=== PATIENT | female | born 1950 | race Caucasian/White ===

== ENCOUNTER 2017-03-19 11:39 | Observation (INO) | payer BC, MEDICARE ==
[~2017-03-19] VITALS: Ht 157.5 cm; Wt 64.0 kg
[2017-03-19] MEDS ORDERED: KETOROLAC 15 MG INJ IV STA (11:49)
[2017-03-19] MEDS ORDERED: SOD CHLORIDE 0.9% 1,000 ML IV STA (11:49)
[2017-03-19] MEDS ORDERED: ASPIRIN 81 MG TAB PO ONE (12:00)
[2017-03-19 12:15] LABS: ADD SCAN DIFF NO
[2017-03-19 12:19] LABS: BASOPHILS % 0.2 % (0.0-2.0); EOSINOPHILS % 0.1 % (0.0-7.0); HEMATOCRIT 41.3 % (37.0-47.0); HEMOGLOBIN 13.9 g/dl (12.0-16.0); LYMPHOCYTES # 1.6 10^3/ul (0.8-2.9); LYMPHOCYTES % 16.1 % (15.0-51.0); MEAN CORPUSCULAR HEMOGLOBIN 28.7 pg (29.0-33.0); MEAN CORPUSCULAR HGB CONC 33.7 g/dl (32.0-37.0); MEAN CORPUSCULAR VOLUME 85.2 fl (82.0-101.0); MEAN PLATELET VOLUME 10.1 fl (7.4-10.4); MONOCYTE # 0.8 10^3/ul (0.3-0.9); MONOCYTES % 8.1 % (0.0-11.0); NEUTROPHIL # 7.7 10^3/ul (1.6-7.5); NEUTROPHILS % 75.1 % (39.0-77.0); PLATELET COUNT 246 10^3/UL (140-415); RED BLOOD COUNT 4.85 10^6/ul (4.20-5.40); RED CELL DISTRIBUTION WIDTH 12.3 % (11.5-14.5); WHITE BLOOD COUNT 10.2 10^3/ul (4.8-10.8)
[2017-03-19 12:39] LABS: ALANINE AMINOTRANSFERASE 35 IU/L (13-69); ALBUMIN 4.2 g/dl (3.3-4.9); ALKALINE PHOSPHATASE 87 IU/L (42-121); ANION GAP 19 (8-16); ASPARTATE AMINO TRANSFERASE 33 IU/L (15-46); BILIRUBIN,INDIRECT 0.7 mg/dl (0-1.1); BILIRUBIN,TOTAL 0.7 mg/dl (0.2-1.3); BLOOD UREA NITROGEN 14 mg/dl (7-20); CALCIUM 9.6 mg/dl (8.4-10.2); CARBON DIOXIDE 28 mmol/L (21-31); CHLORIDE 100 mmol/L (97-110); CREATININE 0.64 mg/dl (0.44-1.00); GLUCOSE 155 mg/dl (70-220); POTASSIUM 4.2 mmol/L (3.5-5.1); SODIUM 143 mmol/L (135-144); TOTAL PROTEIN 7.2 g/dl (6.1-8.1)
[2017-03-19 12:56] LABS: TROPONIN-I < 0.012 ng/ml (0.00-0.12)
--- NOTE | 2017-03-19 13:09 | ERA ---
ER Documentation Chief Complaint Date/Time DATE: 03/19/17 TIME: 13:01 Chief Complaint sent by pmd for abn ekg HPI 67-year-old woman referred by PMD for abnormal EKG. Patient states since last night she has had inspiratory substernal chest pain. She denies previous episodes. She denies resting pain, no shortness of breath, no calf or leg swelling, no cough, no fevers or chills, no vomiting or diarrhea. Patient does have a history of atrial fibrillation and supraventricular tachycardia status post ablation, and has a history of ovarian cancer status post radiation therapy 3 years ago. No history of thrombosis. Patient used low-dose aspirin last night. Patient states her pulse normally runs in the 80s although at her PMDs office she was tachycardic at 100. ROS All systems reviewed and are negative except as per history of present illness. Allergies Allergies: Coded Allergies: Penicillins (Unverified Allergy, Unknown, 09/03/06) PMhx/Soc History of Surgery: Yes (heart surgery for asd, cardiac ablation , hysterectomy ) Hx Cardiac Disorders: Yes (atrial septal defect, htn, cholesterol) Hx Miscellaneous Medical Probl: Yes (dm 2, hypothyroid , uterine ca ) Hx Alcohol Use: No Hx Substance Use: No Hx Tobacco Use: No Smoking Status: Never smoker FmHx Family History: No diabetes Physical Exam Vitals Vital Signs Date Time Temp Pulse Resp B/P Pulse Ox O2 Delivery O2 Flow Rate FiO2 03/19/17 12:23 90 25 118/67 99 Room Air 03/19/17 11:41 99.3 101 20 118/69 98 Physical Exam GENERAL: Well-developed, well-nourished, well-hydrated, in no apparent distress , looks nontoxic in appearance HEENT: Moist mucous membranes, pink conjunctiva, no cervical spine tenderness or step-off deformities, no goiter, no jaundice or icterus, extraocular movements intact without pain. No submandibular induration, and no pharyngeal erythema NEURO: Alert and oriented 3, cranial nerves II through XII intact bilaterally, pupils equal round reactive to light, no focal deficits or facial asymmetry, sensation intact distally Strength 5/5 in upper and lower extremities bilaterally CARDIAC: Regular rate and rhythm, no murmurs rubs or gallops LUNGS: Clear bilaterally no wheezing crackles or stridor ABDOMEN: Soft nontender, no guarding, no rigidity, no rebound, no psoas sign no obturator sign. Normoactive bowel sounds SKIN: Warm and dry to touch, no abrasions, contusions, or hematomas, no lacerations, no ecchymosis, no target lesions, and without ulcers EXTREMITIES: No clubbing cyanosis or edema, calves are bilaterally symmetrical, no Homans sign, no popliteal cord sign. Distal pulses equal and bilateral PSYCH: Normal affect without agitation or irritability Result Diagram: 03/19/17 1210 03/19/17 1210 Results 24 hrs Laboratory Tests Test 03/19/17 12:10 White Blood Count 10.210^3/ul Red Blood Count 4.8510^6/ul Hemoglobin 13.9g/dl Hematocrit 41.3% Mean Corpuscular Volume 85.2fl Mean Corpuscular Hemoglobin 28.7pg Mean Corpuscular Hemoglobin Concent 33.7g/dl Red Cell Distribution Width 12.3% Platelet Count 11670^3/UL Mean Platelet Volume 10.1fl Neutrophils % 75.1% Lymphocytes % 16.1% Monocytes % 8.1% Eosinophils % 0.1% Basophils % 0.2% Neutrophils # 7.710^3/ul Lymphocytes # 1.610^3/ul Monocytes # 0.810^3/ul Eosinophils # 0.010^3/ul Basophils # 0.010^3/ul Nucleated Red Blood Cells # 0.010^3/ul Sodium Level 143mmol/L Potassium Level 4.2mmol/L Chloride Level 100mmol/L Carbon Dioxide Level 28mmol/L Anion Gap 19 Blood Urea Nitrogen 14mg/dl Creatinine 0.64mg/dl Glucose Level 155mg/dl Calcium Level 9.6mg/dl Total Bilirubin 0.7mg/dl Direct Bilirubin 0.00mg/dl Indirect Bilirubin 0.7mg/dl Aspartate Amino Transf (AST/SGOT) 33IU/L Alanine Aminotransferase (ALT/SGPT) 35IU/L Alkaline Phosphatase 87IU/L Troponin I < 0.012ng/ml Total Protein 7.2g/dl Albumin 4.2g/dl Globulin 3.00g/dl Albumin/Globulin Ratio 1.40 Lipase 41U/L Current Medications Medications (Trade) Dose Ordered Sig/Luiza Route PRN Reason Start Time Stop Time Status Last Admin Dose Admin Sodium Chloride (NS) 1,000 ml @ 1,000 mls/hr Q1H STAT IV 03/19/17 11:49 03/19/17 12:48 DC 03/19/17 12:21 Ketorolac Tromethamine (Toradol) 15 mg ONCE STAT IV 03/19/17 11:49 03/19/17 11:51 DC Aspirin (Aspirin) 324 mg ONCE ONCE PO 03/19/17 12:00 03/19/17 12:01 DC 03/19/17 12:21 IV Flush 10 ml 10 ml STK-MED ONCE .ROUTE 03/19/17 13:41 03/19/17 13:42 DC Sodium Chloride 100 ml @ ud STK-MED ONCE .ROUTE 03/19/17 13:41 03/19/17 13:42 DC Iohexol (Omnipaque) 100 ml @ ud STK-MED ONCE .ROUTE 03/19/17 13:41 03/19/17 13:42 DC Procedures/MDM IV line was established patient was placed on electronic lab technician rhythm strip revealed a sinus rhythm at about 90 bpm with upright P and T waves. Patient was afebrile. I administered 1 L normal saline intravenously, aspirin 324 mg p.o. for cardioprotective measures, and Toradol 15 mg IV 1. EKG performed, read by me: 91 bpm, normal sinus rhythm, normal axis, no acute ST segment changes, narrow QRS complex, with good R-wave progression in precordial leads. CBC and electrolytes were normal, liver function tests normal, troponin was negative. One view chest x-ray performed, read by me there is atelectatic changes bilaterally, possible early infiltrates, no pneumothorax, no end of the diaphragm, no pleural effusion. Given the patient's recent symptoms and x-ray findings I ordered blood culture 1, levofloxacin 750 mg IV 1, and BNP. Further antibiotic management if indicated deferred to PMD. CT angiogram of the chest ordered results are pending I will follow-up Patient will be admitted to telemetry setting for continued medical management cardiology consultation. Departure Diagnosis: Primary Impression: Chest pain Qualified Code: R07.1 - Chest pain on breathing Condition: MARY BETH Mota MD Mar 19, 2017 13:09
--- NOTE | 2017-03-19 13:25 | RADRPT ---
PROCEDURE: Chest Radiograph. CLINICAL INDICATION: Chest pain. TECHNIQUE: Single frontal chest radiograph. COMPARISON: None available FINDINGS: The cardiomediastinal silhouette is within normal limits. There is mild bibasilar opacities likely related to atelectasis. No definite confluent or lobar infiltrate is seen. There is no pleural effu rocco. The bones are intact. IMPRESSION: 1. Bibasilar opacities likely related atelectasis, though early infiltrates can have this appearanc e. Recommend follow-up as clinically indicated. RPTAT: KK .Don Ritchie MD, MD Date Time Electronically viewed and signed by .Don Ritchie MD, MD on 03/19/2017 13:25 .B/
[2017-03-19] MEDS ORDERED: SOD CHLORIDE 0.9% 100 ML ONE (13:41)
[2017-03-19] MEDS ORDERED: IOHEXOL 100 ML ONE (13:41)
--- NOTE | 2017-03-19 14:11 | RADRPT ---
PROCEDURE: CT angiogram of the chest with contrast. CLINICAL INDICATION: Rule out pulmonary embolism TECHNIQUE: CT scan of the chest with contrast was performed on a multidetector high-resolution CT scan. The patient was scanned following the uncomplicated intravenous administration of 90 ml Omnip aque 350. Coronal and sagittal reformatted images were obtained from the axial source images. Standa rd CT angiogram of the chest with contrast protocols were performed. 2-D and 3-D reformats were perf ormed. The total exam CTDI equals new 42.25 mGy and the total exam DLP equals 576.91 mGy-cm. One or more of the following dose reduction techniques were used: - Automated exposure control. - Adjustment of the mA and/or kV according to patient size. Use of iterative reconstruction technique. COMPARISON: Chest series same day FINDINGS: The pulmonary outflow tract, right and left main pulmonary arteries, right and left interlobar and p rimary intersegmental pulmonary arteries are well enhanced without evidence of filling defects. Spe cifically no evidence of central pulmonary emboli. No evidence of pulmonary arterial hypertension. The heart is mildly enlarged but no evidence of right heart strain. There is minimal atherosclerotic vascular disease of the proximal abdominal aorta. There is no evid ence of aortic dissection or aneurysm. The right left subclavian arteries, brachial cephalic artery , proximal aspects of the right and left common carotid and vertebral arteries are unremarkable. The celiac axis and SMA are unremarkable. There are 2 left renal arteries present and those portions v isualized are unremarkable. Proximal aspect of a solitary right renal artery is demonstrated and is unremarkable. No evidence of pleural effusions and pneumothoraces. No evidence of mediastinal hilar or axillary l ymphadenopathy. There is no evidence of acute lung infiltrates or pulmonary nodules bilaterally. T here is mild scarring involving the right middle lobe , both lung bases and both apices. There is a small hiatal hernia. The chest wall is unremarkable. There is a mild S-shaped thoracic scoliosis. There are degenerative changes lower cervical thoracic and upper lumbar spine but no acu te osseous findings are osteoblastic/osteolytic lesions. IMPRESSION: 1. No evidence of central pulmonary emboli. Negative for pulmonary arterial hypertension. 2. No evidence of aortic aneurysm or dissection. 3. Chronic bilateral parenchymal lung disease without evidence of acute infiltrates, pulmonary nodu les, 4. Small hiatal hernia. RPTAT:AAJJ Shashi Claire Physician Date Time Electronically viewed and signed by Shashi Claire Physician on 03/19/2017 14:11 /
[2017-03-19] MEDS ORDERED: LEVOFLOXACIN 750MG/D5W (PMX) 150 ML IVPB ONE (14:30)
[2017-03-19] MEDS ORDERED: LEVO175T2 PO (15:10)
[2017-03-19] MEDS ORDERED: LISI-313 PO (15:10)
[2017-03-19] MEDS ORDERED: SIMV10TA PO (15:10)
[2017-03-19] MEDS ORDERED: SITA100T8 PO (15:11)
[2017-03-19] MEDS ORDERED: METF1000 PO (15:11)
[2017-03-19] MEDS ORDERED: morphine 2 MG INJ IV PRN ×2 (18:00)
[2017-03-19] MEDS ORDERED: ONDANSETRON 4 MG TAB PO PRN (18:00)
[2017-03-19] MEDS ORDERED: LORAZEPAM 2 MG INJ IV PRN (18:00)
[2017-03-19] MEDS ORDERED: NITROGLYCERIN (SL) 0.4 MG TAB SL PRN (18:00)
[2017-03-19] MEDS ORDERED: MAGNESIUM HYDROXIDE 30ML CUP PO PRN (18:00)
[2017-03-19] MEDS ORDERED: ZOLPIDEM 5 MG TAB PO PRN (18:00)
[2017-03-19] MEDS ORDERED: ACETAMINOPHEN 325 MG TAB PO PRN (18:00)
[2017-03-19] MEDS ORDERED: NACL 0.9% 3 ML SYG IV SCH (18:00)
--- NOTE | 2017-03-19 18:06 | CONS ---
Date/Time of Note Date/Time of Note DATE: 03/19/17 TIME: 17:49 Assessment/Plan Assessment/Plan Chief Complaint/Hosp Course 67 yowf w/ hx of surgical ASD repair (1966), atrial flutter ablation, htn, DM and other issues who was sent by her PMD b/c chest pain and abnormal ECG. Her ECG abnormalities were actually present on a [place] ECG [place] [facility] [place]. She had a negative stress test in 02/26/19 (exercise nuclear stress test). Troponin is negative x 1 (despite hours of symptoms). Pt is now pain free. Pt's symptoms seem unlikely to be ACS for several reasons. May be musculoskeletal or pulmonary (infection). Due to risk factors, would observe o/n (serial troponins). Check echo tomorrow. If troponins negative, check lexiscan. Aspirin 81mg daily. Tx of possible pulmonary infection per medicine team. Problems: Consultation Date/Type/Reason Admit Date/Time Date of Consultation: Mar 19, 2017 Type of Consultation: cardiology Reason for Consultation chest pain, abnormal ECG Hx of Present Illness 67 yowf w/ hx of surgical ASD repair (1966), atrial flutter ablation, htn, DM and other issues who was sent by her PMD b/c chest pain and abnormal ECG. Pt states she had pleuritic chest pain last night (03/09). It felt like an ached. Was not associated with sob, nausea or diaphoresis. It occurred after she took her meds. She saw her PMD, and she was noted to be slightly tachy then (sinus tach, low 100s). Her ECG at the PMD's office had mild ST elevations in the inferior leads (J-point, < 1mm), but these findings were present in an ECG done by Dr. Oliva in 12/15. Pt stated her pain improved upon arrival and now she is chest pain free. Her troponin is negative x 1. CXR reveals ? atelectasis vs early PNA. CTA is negative for PE. She received aspirin, abx, and toradol ( unclear if pt took the last). Pt is followed by Dr. Oliva. She had a negative exercise stress test 02/26, and an echo done 05/27/16 revealed normal LV fxn with no evidence of residual ASD. Past Medical History ASD - surgical repair 1967 atrial flutter ablation htn DM hysterectomy uterine CA Past Surgical History see above Social History Smoking Status: Former smoker Exam/Review of Systems Vital Signs Vitals Vital Signs Date Time Temp Pulse Resp B/P Pulse Ox O2 Delivery O2 Flow Rate FiO2 03/19/17 16:15 83 28 111/63 100 Room Air 03/19/17 11:41 99.3 Exam Constitutional: alert, oriented, No distress Eyes: EOMI Neck: other (no carotid bruits), supple, No jvd Respiratory: clear to auscultation Cardiovascular: regular rate and rhythm, No systolic murmur Extremities: other (trace edema) Neurological: nl mental status Results nsr @ 91, nl axis, nl intervals, Q in III, J-point elevation in I, II, avF (< 1mm) - present on ECG 11/2016 Result Diagram: 03/19/17 1210 03/19/17 1210 Results 24 hrs Laboratory Tests Test 03/19/17 12:10 White Blood Count 10.2 Red Blood Count 4.85 Hemoglobin 13.9 Hematocrit 41.3 Mean Corpuscular Volume 85.2 Mean Corpuscular Hemoglobin 28.7 L Mean Corpuscular Hemoglobin Concent 33.7 Red Cell Distribution Width 12.3 Platelet Count 246 Mean Platelet Volume 10.1 Neutrophils % 75.1 Lymphocytes % 16.1 Monocytes % 8.1 Eosinophils % 0.1 Basophils % 0.2 Neutrophils # 7.7 H Lymphocytes # 1.6 Monocytes # 0.8 Eosinophils # 0.0 Basophils # 0.0 Nucleated Red Blood Cells # 0.0 Sodium Level 143 Potassium Level 4.2 Chloride Level 100 Carbon Dioxide Level 28 Anion Gap 19 H Blood Urea Nitrogen 14 Creatinine 0.64 Glucose Level 155 Calcium Level 9.6 Total Bilirubin 0.7 Direct Bilirubin 0.00 Indirect Bilirubin 0.7 Aspartate Amino Transf (AST/SGOT) 33 Alanine Aminotransferase (ALT/SGPT) 35 Alkaline Phosphatase 87 Troponin I < 0.012 B-Type Natriuretic Peptide 272 H Total Protein 7.2 Albumin 4.2 Globulin 3.00 Albumin/Globulin Ratio 1.40 Lipase 41 EMMA MOY Mar 19, 2017 17:59
[2017-03-19 18:09] VITALS: TEMP 98.9
[2017-03-19] MEDS ORDERED: GLUCOSE GEL 15 GRAM TUBE BUCCAL PRN (18:30)
[2017-03-19] MEDS ORDERED: DEXTROSE 50% 50 ML SYRINGE IV PRN ×2 (18:30)
[2017-03-19] MEDS ORDERED: GLUCOSE GEL 15 GRAM TUBE PO PRN ×2 (18:30)
[2017-03-19] MEDS ORDERED: GLUCAGON 1 MG INJ IM PRN (18:30)
[2017-03-19 19:50] LABS: CREATINE KINASE 37 IU/L (23-200)
[2017-03-19 19:59] VITALS: BP 128/63; RESP 20
[2017-03-19 20:04] LABS: CK-MB 0.24 ng/ml (0.0-2.4)
[2017-03-19 20:06] LABS: TROPONIN-I < 0.012 ng/ml (0.00-0.12)
[2017-03-19 21:10] VITALS: PULSE 81
[2017-03-19 21:12] VITALS: PULSE 77
[2017-03-19] MEDS: CALCIUM CARBONATE 500 MG CHEW TAB PO SCH (21:39)
[2017-03-19] MEDS: metFORMIN 500 MG TAB PO SCH (21:40)
[2017-03-19] MEDS: FAMOTIDINE 20 MG TAB PO SCH (21:44)
[2017-03-19] MEDS: METOPROLOL 25 MG TAB PO SCH (21:46)
[2017-03-19 22:36] VITALS: Ht 157.5 cm; Wt 64.0 kg
[2017-03-19 23:31] VITALS: BP 112/59; RESP 16
[2017-03-20] VITALS (10 sets, daily range): BP systolic 92–108; BP diastolic 51–55; PULSE 66–80; RESP 19–20
[2017-03-20 01:50] LABS: CREATINE KINASE 30 IU/L (23-200)
[2017-03-20 02:04] LABS: CK-MB 0.22 ng/ml (0.0-2.4)
[2017-03-20 02:07] LABS: TROPONIN-I < 0.012 ng/ml (0.00-0.12)
[2017-03-20] MEDS ORDERED: LEVOTHYROXINE 175 MCG TAB PO SCH (07:00)
[2017-03-20] MEDS: metFORMIN 500 MG TAB PO SCH ×3 (07:55→17:45)
[2017-03-20 08:07] LABS: ADD SCAN DIFF NO
--- NOTE | 2017-03-20 08:07 | PN ---
Date/Time of Note Date/Time of Note DATE: 03/20/17 TIME: 08:01 Assessment/Plan VTE Prophylaxis VTE Prophylaxis Intervention: ambulation, heparin Lines/Catheters IV Catheter Type (from Nrsg): Saline Lock Central line still needed: No Urinary Cath still in place: No Assessment/Plan Chief Complaint/Hosp Course chest pain better w/u inplace Problems: Assessment/Plan per cardiology when evaluation and rest of studies are available Subjective 24 Hr Interval Summary Free Text/Dictation stable this am no further chst pain cardiology w/u in progress cardiac enzymes neg x2 ,comfortable this am Constitutional: no complaints Eyes: no complaints ENT: no complaints Respiratory: no complaints Cardiovascular: no complaints Gastrointestinal: no complaints Genitourinary: no complaints Musculoskeletal: no complaints Skin: no complaints Neurologic: no complaints Endocrine: no complaints Lymphatic: no complaints Psychological: no complaints Immunologic: no complaints Exam/Review of Systems Vital Signs Vitals Vital Signs Date Time Temp Pulse Resp B/P Pulse Ox O2 Delivery O2 Flow Rate FiO2 03/20/17 07:10 98.1 69 19 108/55 98 03/19/17 18:09 Room Air Intake and Output 03/19/17 03/19/17 03/20/17 15:00 23:00 07:00 Intake Total 1200 ml Output Total 3 ml Balance 1197 ml Exam Constitutional: alert, oriented Psych: no complaints Head: atraumatic, normocephalic Eyes: nl conjunctiva ENMT: nl external ears & nose Neck: supple Respiratory: clear to auscultation Cardiovascular: regular rate and rhythm Gastrointestinal: soft Musculoskeletal: nl extremities to inspection Skin: nl turgor Results Result Diagram: 03/19/17 1210 03/19/17 1210 Results 24 hrs Laboratory Tests Test 03/19/17 12:10 03/19/17 18:59 03/19/17 19:00 03/19/17 20:27 White Blood Count 10.2 Red Blood Count 4.85 Hemoglobin 13.9 Hematocrit 41.3 Mean Corpuscular Volume 85.2 Mean Corpuscular Hemoglobin 28.7 L Mean Corpuscular Hemoglobin Concent 33.7 Red Cell Distribution Width 12.3 Platelet Count 246 Mean Platelet Volume 10.1 Neutrophils % 75.1 Lymphocytes % 16.1 Monocytes % 8.1 Eosinophils % 0.1 Basophils % 0.2 Neutrophils # 7.7 H Lymphocytes # 1.6 Monocytes # 0.8 Eosinophils # 0.0 Basophils # 0.0 Nucleated Red Blood Cells # 0.0 Sodium Level 143 Potassium Level 4.2 Chloride Level 100 Carbon Dioxide Level 28 Anion Gap 19 H Blood Urea Nitrogen 14 Creatinine 0.64 Glucose Level 155 Calcium Level 9.6 Total Bilirubin 0.7 Direct Bilirubin 0.00 Indirect Bilirubin 0.7 Aspartate Amino Transf (AST/SGOT) 33 Alanine Aminotransferase (ALT/SGPT) 35 Alkaline Phosphatase 87 Troponin I < 0.012 < 0.012 B-Type Natriuretic Peptide 272 H 375 H Total Protein 7.2 Albumin 4.2 Globulin 3.00 Albumin/Globulin Ratio 1.40 Lipase 41 Creatine Kinase 37 Creatine Kinase Index 0.6 Creatinine Kinase MB (Mass) 0.24 Bedside Glucose 145 Test 03/20/17 01:05 Creatine Kinase 30 Creatine Kinase Index 0.7 Creatinine Kinase MB (Mass) 0.22 Troponin I < 0.012 Medications Medications Current Medications Lisinopril (Zestril) 5 mg DAILY PO ; Start 03/20/17 at 09:00 Miscellaneous Information 1 ea NOTE XX ; Start 03/19/17 at 18:30 Glucose (Glutose) 15 gm Q15M PRN PO DECREASED GLUCOSE; Start 03/19/17 at 18:30 Glucose (Glutose) 22.5 gm Q15M PRN PO DECREASED GLUCOSE; Start 03/19/17 at 18: 30 Dextrose (D50w Syringe) 25 ml Q15M PRN IV DECREASED GLUCOSE; Start 03/19/17 at 18:30 Dextrose (D50w Syringe) 50 ml Q15M PRN IV DECREASED GLUCOSE; Start 03/19/17 at 18:30 Glucagon (Glucagen) 1 mg Q15M PRN IM DECREASED GLUCOSE; Start 03/19/17 at 18:30 Glucose (Glutose) 15 gm Q15M PRN BUCCAL DECREASED GLUCOSE; Start 03/19/17 at 18 :30 Lorazepam (Ativan) 0.5 mg Q6H PRN IV ANXIETY; Start 03/19/17 at 18:00 Ondansetron HCl (Zofran Tab) 4 mg Q6H PRN PO NAUSEA AND/OR VOMITING; Start at 18:00 Aspirin (Ecotrin) 325 mg DAILY PO ; Start 03/20/17 at 09:00; Stop 03/20/17 at 22 :00 Nitroglycerin (Nitroglycerin (Sl Tab) 0.4 Mg) 1 tab Q5M PRN SL CHEST PAIN; Start 03/19/17 at 18:00 Acetaminophen (Tylenol Tab) 650 mg Q6H PRN PO PAIN LEVEL 1-3 OR FEVER; Start at 18:00 Morphine Sulfate (morphine) 2 mg Q4H PRN IV PAIN LEVEL 7-10; Start 03/19/17 at 18:00 Zolpidem Tartrate (Ambien) 5 mg QHS PRN PO INSOMNIA; Start 03/19/17 at 18:00 Magnesium Hydroxide (Milk Of Mag) 30 ml DAILY PRN PO CONSTIPATION; Start at 18:00 Famotidine (Pepcid) 20 mg Q12 PO Last administered on 03/19/17 21:44; Admin Dose 20 MG; Start 03/19/17 at 22:00 Enoxaparin Sodium (Lovenox) 40 mg DAILY SC ; Start 03/20/17 at 09:00 Calcium Carbonate (Tums) 500 mg QID PO Last administered on 03/19/17 21:39; Admin Dose 500 MG; Start 03/19/17 at 22:00 Aspirin (Aspirin) 81 mg DAILY PO ; Start 03/21/17 at 09:00 Metoprolol Tartrate (Lopressor) 12.5 mg BID PO Last administered on 03/19/17 21:46; Admin Dose 12.5 MG; Start 03/19/17 at 22:00 Morphine Sulfate (morphine) 2 mg Q2H PRN IV PAIN LEVEL 4-6; Start 03/19/17 at 18:00 ASHISH STEELE MD Mar 20, 2017 08:07
[2017-03-20 08:14] LABS: BASOPHILS % 0.3 % (0.0-2.0); EOSINOPHILS # 0.1 10^3/ul (0.0-0.5); EOSINOPHILS % 1.1 % (0.0-7.0); HEMATOCRIT 39.5 % (37.0-47.0); HEMOGLOBIN 13.1 g/dl (12.0-16.0); MEAN CORPUSCULAR HEMOGLOBIN 28.9 pg (29.0-33.0); MEAN CORPUSCULAR HGB CONC 33.2 g/dl (32.0-37.0); MEAN PLATELET VOLUME 10.6 fl (7.4-10.4); MONOCYTE # 0.6 10^3/ul (0.3-0.9); MONOCYTES % 8.7 % (0.0-11.0); NEUTROPHIL # 3.7 10^3/ul (1.6-7.5); NEUTROPHILS % 58.6 % (39.0-77.0); PLATELET COUNT 230 10^3/UL (140-415); RED BLOOD COUNT 4.54 10^6/ul (4.20-5.40); RED CELL DISTRIBUTION WIDTH 12.5 % (11.5-14.5); WHITE BLOOD COUNT 6.4 10^3/ul (4.8-10.8)
[2017-03-20 08:35] LABS: ALBUMIN 3.7 g/dl (3.3-4.9); ALBUMIN/GLOBULIN RATIO 1.23; BILIRUBIN,INDIRECT 0.6 mg/dl (0-1.1); BILIRUBIN,TOTAL 0.6 mg/dl (0.2-1.3); CALCIUM 9.5 mg/dl (8.4-10.2); CHOL/HDL RATIO 2.5 RATIO; CREATININE 0.57 mg/dl (0.44-1.00); MAGNESIUM 1.5 mg/dl (1.7-2.5); POTASSIUM 4.6 mmol/L (3.5-5.1); TOTAL PROTEIN 6.7 g/dl (6.1-8.1)
[2017-03-20 08:37] LABS: PROTIME 13.2 Sec (12.2-14.2)
[2017-03-20 08:38] LABS: PARTIAL THROMBOPLASTIN TIME 33.8 Sec (25.0-35.0)
[2017-03-20] MEDS ORDERED: REGADENOSON 0.4 MG/5 ML SYG ONE (08:53)
[2017-03-20] MEDS: ASPIRIN (EC) 325 MG TAB PO SCH ×2 (09:00→12:09)
[2017-03-20] MEDS: METOPROLOL 25 MG TAB PO SCH (09:00)
[2017-03-20] MEDS: ENOXAPARIN 40 MG/0.4 ML SYG SC SCH ×2 (09:00→12:13)
[2017-03-20] MEDS ORDERED: LISINOPRIL 5 MG TAB PO SCH (09:00)
[2017-03-20] MEDS: CALCIUM CARBONATE 500 MG CHEW TAB PO SCH ×3 (09:00→17:45)
[2017-03-20] MEDS: FAMOTIDINE 20 MG TAB PO SCH ×2 (09:00→12:09)
--- NOTE | 2017-03-20 09:27 | PN ---
Date/Time of Note Date/Time of Note DATE: 03/20/17 TIME: 09:21 SUBJECTIVE: Patient without any further pains denies any dyspnea palpitations PND orthopnea. States the pain started as she was lying in bed lasting for hours no exertional pleuritic component. ROS: Patient denied any fevers, chills, weight loss, nausea, vomiting, diarrhea, constipation, cough, hemoptysis, dysuria, hematuria, nocturia, any neurologic symptoms, headache, any chest pains, dyspnea, PND, orthopnea, leg edema, or palpitations. All other review of systems were normal. OBJECTIVE: Vital signs please see chart. HEENT; no JVD, no HJR, carotids 2 over 4+ without bruits. Chest: Clear to auscultation and percussion, no rales, wheezes or rhonchi. Cardiac: S4, S1, S2 with normal physiologic splitting, 1/6 systolic ejection murmur, no rub click or diastolic murmur noted. Abdominal: Bowel sounds positive, soft nontender, no abdominal bruit noted, no hepatosplenomegaly. Extremities: No cyanosis, clubbing, or edema. Negative Homans sign or palpable cords. Pulses: 2/4 pulses diffusely no bruits noted. Laboratory studies CBC normal, electrolytes, bun, creatinine, all normal, troponin 3 negative, BNP 375. Chest x-ray revealed cardiomegaly no heart failure no wide mediastinum. EKG this morning revealed ectopic atrial rhythm at 65 otherwise normal tracing no EKG changes. CTA report revealed no pulmonary emboli no dissection small hiatal hernia noted. Lexiscan stress test patient had flushed feeling no other symptoms no EKG changes normal heart rate and blood pressure response. Nuclear imaging pending. Echocardiogram to be reviewed. ASSESSMENT: 1. Atypical chest pain no objective findings of ischemia thus far. 2. History of ASD repair 1966. 3. Atrial flutter ablation in the past no recurrence. 4. Hypertension. 5. Type 2 diabetes. 6. Hyperlipidemia-controlled on statin. PLAN: 1. At this time awaiting echo report and nuclear perfusion imaging findings. 2. In the interim continue aspirin, lisinopril, thyroid supplementation, metoprolol low dose, Pepcid and metformin restart statin. 3. If no objective findings of ischemia may discharge patient later this afternoon. CARLIE CODY MD Mar 20, 2017 09:27
--- NOTE | 2017-03-20 09:47 | RADRPT ---
Echocardiogram Report Patient Name: GAGE JEAN Gender: Female Date: 1950 Study Date: 20-Mar-2017 Liquor Rectifier: Gricel [facility] Location: 510 Ref. Physician: EMMA MOY Quality: Technically Difficult Study Procedures: Transthoracic echocardiogram with complete 2D, M-Mode, and doppler examination. Indications: Chest pain, hx of ASD closure. 2D/M Mode Doppler Measurement Value Normal Ranges Measurement Value Normal Ranges LVIDd 2D 3.5 3.5 - 5.6 cm AV Peak Carlitos 1.4 m/sec LVIDs 2D 2.4 2.1 - 4.1 cm AV Peak PG 7.0 mmHg FS 2D 31.3 % LVOT Peak Carlitos 1.1 m/sec LVPWd 2D 1.3 0.6 - 1.1 cm LVOT Peak PG 5.0 mmHg IVSd 2D 1.3 0.6 - 1.1 cm MV E Peak Carlitos 0.9 m/sec IVS/LVPW 2D 1.0 MV A Peak Carlitos 0.8 m/sec AoR Diam 2D 2.5 2.0 - 3.7 cm MV E/A 1.2 LA/Ao 2D 1 0 - 1 MV Decel Time 239 msec EDV 2D 44.7 cm3 MV E/A 1.2 ESV 2D 14.5 cm3 TR Peak Carlitos 2.7 m/sec LA Dimen 2D 3.5 2.3 - 4.0 cm TR Peak PG 28.0 mmHg Findings Left Ventricle: Normal left ventricular systolic function. Normal left ventricular cavity size. Mild concentric left ventricular hypertrophy. Ejection fraction is visually estimated at 60 %. E/E`=8. normal e/e`ratio c/w normal LA pressure,no evidence of diastolic dysfunction noted. Right Ventricle: Normal right ventricular size. Normal right ventricular systolic function. Left Atrium: The left atrium is normal in size. Right Atrium: The right atrium is normal in size. Atrial Septum: Not well visualized. Atrial septum not well visualized but No intracardiac shunt noted from limited doppler imaging. Mitral Valve: Mitral valve leaflets appear mildly thickened. Mild mitral annular calcification. Trace mitral regurgitation. Aortic Valve: Aortic cusps appear mildly calcified. Trileaflet aortic valve. No aortic regurgitation. Tricuspid Valve: Normal appearance of the tricuspid valve. Estimated peak PA systolic pressure 28 mmHg. There is mild tricuspid regurgitation. no evidence of significant pulmonary HTN. Pulmonic Valve: Pulmonic valve not well visualized. There is trace pulmonic regurgitation. Pericardium: Normal pericardium with no significant pericardial effusion. Aorta: Normal aortic root. IVC: Normal size and normal respiratory collapse consistent with normal right atrial pressure. Conclusions 1.Normal left ventricular systolic function. Normal left ventricular cavity size. Mild concentric left ventricular hypertrophy. Ejection fraction is visually estimated at 60 %. E/E`=8. normal e/e`ratio c/w normal LA pressure,no evidence of diastolic dysfunction noted. 2.The left atrium is normal in size. 3.Not well visualized. Atrial septum not well visualized but No intracardiac shunt noted from limited doppler imaging. 4.Mitral valve leaflets appear mildly thickened. Mild mitral annular calcification. Trace mitral regurgitation. 5.Aortic cusps appear mildly calcified. Trileaflet aortic valve. No aortic regurgitation. 6.Normal appearance of the tricuspid valve. Estimated peak PA systolic pressure 28 mmHg. There is mild tricuspid regurgitation. no evidence of significant pulmonary HTN. 7.Normal pericardium with no significant pericardial effusion. 8.Normal size and normal respiratory collapse consistent with normal right atrial pressure. 9.No Vegetation, masses, or thrombi seen. Electronically Signed By: Chucky Wood 20-Mar-2017 09:46:06 -0700 Patient Name: GAGE JEAN Study Date: 20-Mar-2017 [id number]
--- NOTE | 2017-03-20 11:03 | HP ---
DATE OF ADMISSION: 03/19/2017 HISTORY OF PRESENT ILLNESS: This is 1 of several [facility] admissions for this 67-year-old woman admitted with chief complaint of chest pain of approximately 12 hours' duration, unrelieved by pain medication. Mrs. Champion is a 67-year-old woman, has cardiac history in the past of paroxysmal atrial fibrillation as well as atrial flutter and atrial tachycardia requiring ablation treatment. Had been doing relatively well. To her knowledge, has not had any prior coronary disease. Woke up with severe substernal chest pain radiating up towards the neck, which did not seem to go away and eventually presented to my office where she was noted to be tachycardic with a heart rate in the low 100s and otherwise seemed to be in no acute distress. She was transferred to the emergency room at [facility], where she was evaluated. There was a ? of possible pulmonary embolus. The patient also had CAT angio, which was negative in terms of pulmonary emboli and patient is being admitted to rule out acute myocardial episode or preinfarction angina. PAST MEDICAL HISTORY: As mentioned above, she had an episode of atrial flutter which was difficult to control medically and eventually underwent successful ablation and has not had a recurrence since then and is under the care of Dr. Louis Oliva in terms of her sales receptionist. She also has diabetes mellitus type 2, which is relatively well controlled at this point in time, with oral agents and also has hypothyroidism for which she takes thyroid hormone replacement. PAST SURGICAL HISTORY: She has had a laparoscopic hysterectomy for uterine cancer, a parathyroid surgery for hyperparathyroidism when she was much younger and had surgery for a patent ductus which was successfully treated, as well as tonsil and adenoid surgery. MEDICATIONS: She currently is taking the following medications. Januvia 100 mg a day, metformin 1000 mg b.i.d., simvastatin 10 mg a day and lisinopril 5 mg a day. ALLERGIES: SHE IS ALLERGIC TO PENICILLIN AND HAD BEEN RELATIVELY STABLE UP UNTIL THIS MOST RECENT EPISODE. SOCIAL HISTORY: The patient is , has 1 son adopted, no biological children. She does not smoke or drink alcohol. Does drink coffee. Usually has no difficulty sleeping at night. FAMILY HISTORY: Both parents are . Father age 89 of old age. Mother in her early 80s had diabetes, heart, hypertension and did have a stroke. Two brothers are alive, 1 . There is a family history of diabetes and heart as well as cancer, hypertension and stroke. REVIEW OF SYSTEMS: HEENT: Periodic headaches, most likely tension headaches. CARDIORESPIRATORY: Denies usually having a chest pain, although does have palpitations and occasional shortness of breath, and at this particular point in time, had fairly severe retrosternal chest pain. GASTROINTESTINAL: No melena or hematemesis. However, does have significant bloating and other vague abdominal complaints on a chronic basis. GENITOURINARY: No urgency or frequency. GYNECOLOGIC: Post hysterectomy and up-to-date with her chopping machine operator. MUSCULOSKELETAL: Unremarkable. NEUROPSYCHIATRIC: Unremarkable GENERAL HEALTH: As above. PHYSICAL EXAMINATION: VITAL SIGNS: Patient's blood pressure was 120/60. Pulse was 104- 106, appeared to be regular. Respirations were 18, temperature 99.2, weight 140 pounds. GENERAL APPEARANCE: Patient was noted to be a well-developed, well-nourished female, alert and cooperative, in no apparent acute distress but somewhat anxious. Oriented to time, place, and person. HEENT: Head was atraumatic. The eyes: Pupils were equal, reactive to light and accommodation. Fundi were benign. Tympanic membranes were unremarkable. Nose was negative. Mouth was unremarkable. Fair oral hygiene was present. NECK: Supple without any rigidity. Trachea was midline. Thyroid was unremarkable. Neck veins were flat. Carotid pulses were equal and scar was noted from her prior parathyroid surgery. BACK: Unremarkable. CHEST: Symmetrical. There was a scar posteriorly from her PDA surgery. BREAST AND AXILLARY: Exam did not reveal any masses. LUNGS: Clear to percussion and auscultation. HEART: PMI was 5th intercostal space, midclavicular line. Sinus tachycardia was noted. No significant murmurs, rubs, or gallops being elicited. ABDOMEN: Soft. Good bowel sounds were noted. No significant organomegaly, masses or tenderness. Small scar residual from her laparoscopic procedure. GENITALIA: Normal female external genitalia. PELVIC AND RECTAL: Exam Per chopping machine operator. Up to date. EXTREMITIES: Did not reveal any clubbing, edema, or cyanosis. Peripheral pulses were physiologic. SKIN: Moist and warm without any eruptions. No gross lymph adenopathy was noted. NEUROLOGIC: Exam was grossly intact. IMPRESSION: 1. Chest pain. Etiology unclear. Rule out cardiac etiology. 2. Diabetes mellitus type 2, controlled with oral agents. 3. Hypertension. 4. Hyperlipidemia. 5. Paroxysmal atrial fibrillation/flutter, status post ablation. 6. Uterine cancer, status post hysterectomy. 7. Stable health. REVIEW OF LABORATORY AND OTHER DATA: Her initial set of enzymes were negative, At least the 1st 2 sets were negative. BNP, however, was mildly elevated at 375 and 272. Her random glucose was 145. CBC was normal. Chest x-ray including a CAT scan was negative. An EKG revealed initially some ST-T wave elevations in the inferior leads. Those have come down since her rate has improved. PLAN: Patient is getting serial enzymes and EKG. Will be seen by Cardiology to rule out any significant coronary component to this. Cardiology consult has been done and is much appreciated. Condition currently is stable. Prognosis obviously dependent upon ultimate diagnosis. Dictated By: Lev Vincent MD /mary/geraldine /Document#: [id number] JOSE F
--- NOTE | 2017-03-20 11:28 | RADRPT ---
PROCEDURE: Lexiscan myocardial perfusion study CLINICAL INDICATION: 67 -year-old patient complaining of chest pain. TECHNIQUE: Lexiscan 0.4 mg intravenously separate acquisition gated myocardial perfusion SPECT usi ng Tc 99m Myoview 32.6 mCi intravenously at stress and Tc-99m Myoview, 10.8 mCi intravenously at res t was performed using the rest/stress sequence. Poststress Myoview SPECT images were obtained in th e supine position. COMPARISON: No prior studies. FINDINGS: Perfusion images reveal no evidence of perfusion defects. Lexiscan post stress gated SPECT images demonstrate no wall motion abnormalities. IMPRESSION: 1. No evidence of perfusion defects. 2. No wall motion abnormalities. 3. The left ventricle ejection fraction at stress is greater than 70%. RPTAT: HH .Maeve Boone MD, MD Date Time Electronically viewed and signed by .Maeve Boone MD, MD on 03/20/2017 11:27 .L/
--- NOTE | 2017-03-20 17:00 | PDOCDIS ---
Discharge Instructions DIAGNOSIS Discharge Diagnosis chest pain probably 2nd to eosophagitis and hiatus hernia-resolved CONDITION Patient Condition: Good HOME CARE INSTRUCTIONS: Diet Instructions: diabetic salt restricted diet ACTIVITY: Activity Restrictions: No Restrictions Bathing Restrictions: ShowerActivity Restrictions Comment: none FOLLOW UP/APPOINTMENTS Follow-up Plan f/u visit at my office thursday or thursday REFERRALS Agency Name and Phone Number: none OTHER ORDERS: Other Orders: continue prior medications SCHOOL/WORK RELEASE May return to School/Work on: Mar 20, 2017 May return to School/Work with: No Restrictions ASHISH STEELE MD Mar 20, 2017 17:00
--- NOTE | 2017-03-20 19:05 | RADRPT ---
Vent Rate: 65 bpm RR Interval: 0 msec CA Interval: 166 msec QRS Duration: 80 msec QT Interval: 428 msec QTC Interval: 445 msec P-R-T [place]: -75 - 50 - 70 degrees Unusual P axis, possible ectopic atrial rhythm Abnormal ECG Electronically Signed By: Gonzalo Pastrana [id number]
[2017-03-21] MEDS ORDERED: ASPIRIN 81 MG TAB PO SCH (09:00)
== END 2017-03-20 19:25 | disposition home or self-care (01) ==
LOC: E/R 11:39 → TEL 15:29
PROVIDERS: ADMIT Internal Medicine; ATTEND Internal Medicine
DX: R07.89 Other chest pain (principal); E11.9 Type 2 diabetes mellitus without complications; E03.9 Hypothyroidism, unspecified; Z85.42 Personal history of malignant neoplasm of other parts of uterus; E78.00 Pure hypercholesterolemia, unspecified; I10 Essential (primary) hypertension; Z87.891 Personal history of nicotine dependence; Z88.0 Allergy status to penicillin; Z79.84 Long term (current) use of oral hypoglycemic drugs; E78.5 Hyperlipidemia, unspecified; I48.0 Paroxysmal atrial fibrillation; I48.92 Unspecified atrial flutter
CPT/HCPCS: 36415; 71010; 71275; 78452; 80053; 80061; 82550; 82553; 82962; 83036; 83690; 83735; 83880; 84484; 85025; 85610; 85730; 87040; 93005; 93017; 93306; 96374; 99285; A9500; A9505; G0378; J1885; J2785; J7030; Q9967; J1650